=== PATIENT | female | born 1995 | race Caucasian/White ===

== ENCOUNTER 2017-08-10 08:48 | Inpatient (IN) | payer OTHER ==
[2017-08-10] MEDS ORDERED: LACTATED RINGER'S 1,000 ML IV (09:15)
[2017-08-10] MEDS ORDERED: IBUPROFEN 600 MG TAB PO (09:30)
[2017-08-10] MEDS ORDERED: METHYLERGONOVINE 0.2 MG INJ IM ×2 (09:30→18:30)
[2017-08-10] MEDS ORDERED: LIDOCAINE 1% (MPF) 30 ML INJ INJ (09:30)
[2017-08-10] MEDS ORDERED: OXYTOCIN 30 UNITS/LR 500 ML IV ×2 (09:30→18:30)
[2017-08-10] MEDS ORDERED: CARBOPROST 250 MCG INJ IM ×2 (09:30→18:30)
[2017-08-10] MEDS ORDERED: MISOPROSTOL 200 MCG TAB PR ×2 (09:30→18:30)
[2017-08-10] MEDS: LACTATED RINGER'S 1,000 ML IV (09:33)
[2017-08-10 09:48] LABS: ADD MAN DIFF? NO
[2017-08-10 09:53] LABS: WHITE BLOOD COUNT 12.6 10^3/ul (4.8-10.8)
[2017-08-10 09:53] LABS: BASOPHILS % 0.2 % (0.0-2.0); EOSINOPHILS # 0.1 10^3/ul (0.0-0.5); EOSINOPHILS % 0.6 % (0.0-7.0); HEMATOCRIT 38.1 % (37.0-47.0); HEMOGLOBIN 12.6 g/dl (12.0-16.0); LYMPHOCYTES # 1.5 10^3/ul (0.8-2.9); LYMPHOCYTES % 11.7 % (15.0-51.0); MEAN CORPUSCULAR HEMOGLOBIN 27.9 pg (29.0-33.0); MEAN CORPUSCULAR HGB CONC 33.1 g/dl (32.0-37.0); MEAN CORPUSCULAR VOLUME 84.3 fl (82.0-101.0); MEAN PLATELET VOLUME 10.9 fl (7.4-10.4); MONOCYTE # 0.8 10^3/ul (0.3-0.9); MONOCYTES % 6.6 % (0.0-11.0); NEUTROPHIL # 10.2 10^3/ul (1.6-7.5); NEUTROPHILS % 80.5 % (39.0-77.0); PLATELET COUNT 256 10^3/UL (140-415); RED BLOOD COUNT 4.52 10^6/ul (4.20-5.40)
[2017-08-10 10:32] LABS: INR 0.82; PROTIME 11.3 Sec (11.9-14.9); PT RATIO 0.9
[2017-08-10 10:33] LABS: PARTIAL THROMBOPLASTIN TIME 28.1 Sec (25.0-35.0)
[2017-08-10] MEDS: OXYTOCIN 30 UNITS/LR 500 ML IV ×3 (14:18→18:51)
[2017-08-10 15:29] LABS: RAPID PLASMA REAGIN NONREACTIVE (NR)
[2017-08-10] MEDS: BUTORPHANOL 2 MG INJ IV (18:02)
[2017-08-10] MEDS ORDERED: OXYCODONE/ASPIRIN (4.88/325) TAB PO (18:30)
[2017-08-10] MEDS ORDERED: DIBUCAINE 1% 30 GM OINT PR (18:30)
[2017-08-10] MEDS ORDERED: SENNA/DOCUSATE NA (8.6MG/50MG) TAB PO (18:30)
[2017-08-10] MEDS: OXYCODONE/ASPIRIN (4.88/325) TAB PO (22:02)
[2017-08-10] MEDS: SENNA/DOCUSATE NA (8.6MG/50MG) TAB PO (22:03)
[2017-08-10] MEDS: WITCH HAZEL/GLYCERIN PAD PR (22:03)
[2017-08-10] MEDS: BENZOCAINE 20% 56 ML SPRAY TOP (22:03)
[2017-08-10] MEDS: LANOLIN 7 GM TUBE TOP (22:04)
[2017-08-10] MEDS: IBUPROFEN 600 MG TAB PO (23:40)
[2017-08-11] MEDS: IBUPROFEN 600 MG TAB PO ×4 (05:21→23:50)
[2017-08-11 09:27] LABS: ADD MAN DIFF? NO
[2017-08-11 09:32] LABS: BASOPHILS % 0.2 % (0.0-2.0); EOSINOPHILS # 0.1 10^3/ul (0.0-0.5); EOSINOPHILS % 0.6 % (0.0-7.0); HEMATOCRIT 29.7 % (37.0-47.0); HEMOGLOBIN 9.6 g/dl (12.0-16.0); LYMPHOCYTES # 2.1 10^3/ul (0.8-2.9); MEAN CORPUSCULAR HEMOGLOBIN 27.7 pg (29.0-33.0); MEAN CORPUSCULAR HGB CONC 32.3 g/dl (32.0-37.0); MEAN CORPUSCULAR VOLUME 85.6 fl (82.0-101.0); MEAN PLATELET VOLUME 11.1 fl (7.4-10.4); MONOCYTE # 1.5 10^3/ul (0.3-0.9); NEUTROPHIL # 12.3 10^3/ul (1.6-7.5); NEUTROPHILS % 76.6 % (39.0-77.0); PLATELET COUNT 237 10^3/UL (140-415); RED BLOOD COUNT 3.47 10^6/ul (4.20-5.40); RED CELL DISTRIBUTION WIDTH 13.8 % (11.5-14.5)
[2017-08-11 09:32] LABS: WHITE BLOOD COUNT 16.1 10^3/ul (4.8-10.8)
[2017-08-11] MEDS: FOLIC ACID 1 MG TAB PO (09:41)
[2017-08-11] MEDS: SENNA/DOCUSATE NA (8.6MG/50MG) TAB PO ×2 (09:41→21:39)
[2017-08-12] MEDS: IBUPROFEN 600 MG TAB PO ×2 (06:00→12:29)
[2017-08-12] MEDS: SENNA/DOCUSATE NA (8.6MG/50MG) TAB PO (09:16)
[2017-08-12] MEDS: FOLIC ACID 1 MG TAB PO (09:16)
[2017-08-12] MEDS: INFLUENZA VIRUS VACCINE 0.5 ML (DISPENSING) IM* (09:17)
[2017-08-12 10:00] LABS: ADD MAN DIFF? NO
[2017-08-12 10:20] LABS: WHITE BLOOD COUNT 12.6 10^3/ul (4.8-10.8)
[2017-08-12 10:20] LABS: BASOPHILS % 0.3 % (0.0-2.0); EOSINOPHILS # 0.2 10^3/ul (0.0-0.5); EOSINOPHILS % 1.9 % (0.0-7.0); HEMATOCRIT 29.2 % (37.0-47.0); HEMOGLOBIN 9.5 g/dl (12.0-16.0); LYMPHOCYTES # 2.2 10^3/ul (0.8-2.9); LYMPHOCYTES % 17.5 % (15.0-51.0); MEAN CORPUSCULAR HGB CONC 32.5 g/dl (32.0-37.0); MEAN CORPUSCULAR VOLUME 86.1 fl (82.0-101.0); MEAN PLATELET VOLUME 10.8 fl (7.4-10.4); MONOCYTES % 7.5 % (0.0-11.0); NEUTROPHIL # 9.1 10^3/ul (1.6-7.5); NEUTROPHILS % 72.4 % (39.0-77.0); PLATELET COUNT 243 10^3/UL (140-415); RED BLOOD COUNT 3.39 10^6/ul (4.20-5.40)
[2017-08-12] MEDS: DIPHTH/TET/ACEL PERTUSS (ADULT) 0.5 ML VIAL IM* (14:52)
== END 2017-08-12 15:25 | disposition home or self-care (01) | DRG 775 ==
LOC: L-D 08:48 → PP1 21:10
PROVIDERS: Obstetrics & Gynecology
PROC: 10E0XZZ Delivery of Products of Conception, External Approach (ICD-10-PCS; principal; 2017-08-10 08:30)
PROC: 3E033VJ Introduction of Other Hormone into Peripheral Vein, Percutaneous Approach (ICD-10-PCS; 2017-08-10 08:30)
PROC: 0UQGXZZ Repair Vagina, External Approach (ICD-10-PCS; 2017-08-10 08:30)
DX: O48.0 Post-term pregnancy (principal); O71.4 Obstetric high vaginal laceration alone; Z3A.40 40 weeks gestation of pregnancy; Z37.0 Single live birth
CPT/HCPCS: 76815; 85025; 85610; 85730; 86592; 86900; 86901; 90686; 90715; 99464